=== PATIENT | male | born 1995 | race Caucasian/White ===

== ENCOUNTER 2018-02-04 06:33 | Emergency (ER) | payer MEDICAID, OTHER ==
[~2018-02-04] VITALS: Ht 182.9 cm; Wt 75.0 kg
[~2018-02-04 06:33] MED LIST: DIVA500T9 PO; DOXYCYCLINE PO; LEVE10002 PO
[2018-02-04 06:34] VITALS: BP 119/82
[2018-02-04] MEDS ORDERED: FLUC200T8 PO (07:36)
== END 2018-02-04 07:58 | disposition home or self-care (01) ==
LOC: ER 06:33
DX: B35.6 Tinea cruris (principal); Z79.899 Other long term (current) drug therapy
CPT/HCPCS: 99283

== ENCOUNTER 2018-03-02 03:07 | Emergency (ER) | payer OTHER ==
[~2018-03-02] VITALS: Ht 182.9 cm; Wt 76.0 kg
[2018-03-02 03:12] VITALS: BP 145/107
== END 2018-03-02 03:26 | disposition home or self-care (01) ==
LOC: ER 03:07
DX: B35.6 Tinea cruris (principal); Z79.899 Other long term (current) drug therapy
CPT/HCPCS: 99283

== ENCOUNTER 2018-10-30 13:25 | Emergency (ER) | payer MEDICAID, OTHER ==
[~2018-10-30] VITALS: Ht 182.9 cm; Wt 75.0 kg
[2018-10-30 14:14] VITALS: BP 99/75
--- NOTE | 2018-10-30 14:28 | NUR ---
pt states, "i have a severe fungal infection.. and also have chylmadia. ua collected
[2018-10-30] MEDS ORDERED: azithromycin 250mg tablet PO ONE (15:25)
[2018-10-30] MEDS ORDERED: CefTRIAXone 1000mg IM Kit (w/lidocaine diluent) IM ONE (15:25)
[2018-10-30] MEDS ORDERED: MYCOL30CR TP (15:37)
== END 2018-10-30 15:52 | disposition home or self-care (01) ==
LOC: ER 13:26
DX: B35.6 Tinea cruris (principal)
CPT/HCPCS: 36415; 87491; 87591; 96372; 99283; J0696

== ENCOUNTER 2018-11-28 15:09 | Emergency (ER) | payer MEDICAID, OTHER ==
[~2018-11-28] VITALS: Ht 182.9 cm; Wt 72.7 kg
[~2018-11-28 15:09] MED LIST changes: +MYCOL30CR TP
[2018-11-28 15:19] VITALS: BP 130/68
--- NOTE | 2018-11-28 15:28 | NUR ---
PT SEEN IN TRIAGE BY PAM CRENSHAW
== END 2018-11-28 15:51 | disposition home or self-care (01) ==
LOC: ER 15:09
DX: G40.909 Epilepsy, unspecified, not intractable, without status epilepticus (principal); F12.90 Cannabis use, unspecified, uncomplicated; Z79.899 Other long term (current) drug therapy
CPT/HCPCS: 99284

== ENCOUNTER 2019-03-25 01:34 | Emergency (ER) | payer MEDICAID ==
[~2019-03-25] VITALS: Ht 182.9 cm; Wt 65.0 kg
[2019-03-25] MEDS ORDERED: ondansetron/PF 4mg/2ml inj IV STA (01:52)
[2019-03-25] MEDS ORDERED: normal saline 1000ml 1,000 ML IVB ONE (01:52)
[2019-03-25 02:17] LABS: BASOPHILS # (AUTO) 0.1 X10'3 (0-0.2); BASOPHILS % (AUTO) 0.6 % (0-1); EOSINOPHILS % (AUTO) 0.2 % (0-6); HEMOGLOBIN 16.7 g/dl (14.0-17.9); LYMPHOCYTES # (AUTO) 2.2 X10'3 (1.1-4.8); LYMPHOCYTES % (AUTO) 19.9 % (21-51); MEAN CORPUSCULAR HEMOGLOBIN 30.6 PG (27.0-31.0); MEAN CORPUSCULAR HGB CONC 35.4 g/dL (33.0-36.5); MEAN CORPUSCULAR VOLUME 86.4 FL (78-98); MONOCYTES # (AUTO) 1.3 X10'3 (0-0.9); MONOCYTES % (AUTO) 12.1 % (2-12); NEUTROPHILS # (AUTO) 7.4 X10'3 (1.8-7.7); NEUTROPHILS % (AUTO) 67.2 % (42-75); PLATELET COUNT 298 X10'3 (140-440); RED BLOOD COUNT 5.44 X10'6 (4.70-6.10); RED CELL DISTRIBUTION WIDTH 13.4 % (11.5-14.5)
[2019-03-25 02:26] LABS: ALANINE AMINOTRANSFERASE 26 U/L (12-78); ALBUMIN 5.1 G/DL (3.4-5.0); ALBUMIN/GLOBULIN RATIO 1.4 (1.1-1.5); ALKALINE PHOSPHATASE 92 IU/L (46-116); AMYLASE 35 U/L (25-115); ANION GAP 10 (8-16); ASPARTATE AMINO TRANSFERASE 20 U/L (10-37); BILIRUBIN,TOTAL 1.4 MG/DL (0.1-1.0); BLOOD UREA NITROGEN 13 MG/DL (7-18); BUN/CREATININE RATIO 10.5 (5.4-32.0); CALCIUM 9.7 MG/DL (8.5-10.1); CHLORIDE 94 MMOL/L (99-107); CREATININE 1.24 MG/DL (0.60-1.10); GLUCOSE 110 MG/DL (70-104); LIPASE 79 U/L (73-393); POTASSIUM 3.4 MMOL/L (3.5-5.1); SODIUM 134 MMOL/L (135-145); TOTAL CARBON DIOXIDE 30.3 MMOL/L (24-32); TOTAL PROTEIN 8.7 G/DL (6.4-8.2); eGFR 71 ML/MIN
[2019-03-25] MEDS ORDERED: haloperidol lactate 5mg/ml inj IM ONE (02:45)
[2019-03-25] MEDS ORDERED: normal saline 1000ML IV soln IVB ONE (02:45)
[2019-03-25] MEDS ORDERED: diphenhydrAMINE 50 mg/ml inj IV ONE (02:45)
[2019-03-25 02:58] LABS: CLARITY,URINE CLEAR (Clear); COLOR,URINE YELLOW (Yellow); GLUCOSE, URINE NEGATIVE (Neg); KETONES,URINE 15 mg/dl (Neg); LEUKOCYTE ESTERASE ,URINE NEGATIVE (Neg); NITRITES, URINE NEGATIVE (Neg); OCCULT BLOOD,URINE TRACE-INTACT (Neg); PH,URINE 6.5 (4.8-8.0); PROTEIN,URINE 100 mg/dl (Neg); UROBILINOGEN,URINE 0.2 E.U/dL (0.2-1.0)
[2019-03-25 03:04] LABS: UA COLLECTION TYPE CLN CATCH MIDSTREAM
[2019-03-25 03:06] LABS: MUCUS STRANDS MODERATE /LPF (Neg); SQUAMOUS EPITHELIAL CELL,UR FEW /LPF (FEW)
[2019-03-25 03:07] LABS: BACTERIA,URINE 2+ /HPF (Neg); RBC,URINE 0-2 /HPF (0-2)
[2019-03-25] MEDS ORDERED: azithromycin 250mg tablet PO ONE (03:25)
[2019-03-25] MEDS ORDERED: CefTRIAXone 2gm/D5W 50ml 50 ML IV ONE (03:25)
[2019-03-25] MEDS ORDERED: ONDA4TAB12 PO (04:22)
[2019-03-25 04:26] VITALS: BP 136/79
== END 2019-03-25 04:37 | disposition home or self-care (01) ==
LOC: ER 01:35
DX: N34.2 Other urethritis (principal); R11.2 Nausea with vomiting, unspecified; E86.0 Dehydration; R10.13 Epigastric pain; F17.210 Nicotine dependence, cigarettes, uncomplicated; F12.90 Cannabis use, unspecified, uncomplicated; Z79.899 Other long term (current) drug therapy
CPT/HCPCS: 36415; 80053; 81001; 82150; 83690; 85025; 85610; 87088; 96361; 96365; 96372; 96375; 99283; J0696; J1200; J1630; J2405; J7030

== ENCOUNTER 2019-11-07 12:21 | Emergency (ER) | payer MEDICAID, OTHER ==
[~2019-11-07] VITALS: Ht 180.3 cm; Wt 70.0 kg
[~2019-11-07 12:21] MED LIST changes: +ONDA4TAB12 PO
[2019-11-07 12:30] VITALS: BP 127/87
--- NOTE | 2019-11-07 13:33 | NUR ---
lico bernabe engaged in i&d procedure. pt tolerating well.
[2019-11-07] MEDS ORDERED: CEPH500C5 PO (13:40)
[2019-11-07] MEDS ORDERED: SULF1TAB49 PO (13:40)
== END 2019-11-07 13:48 | disposition home or self-care (01) ==
LOC: ER 12:22
DX: L02.31 Cutaneous abscess of buttock (principal); F12.90 Cannabis use, unspecified, uncomplicated
CPT/HCPCS: 10060; 99283

== ENCOUNTER 2020-02-11 01:45 | Emergency (ER) | payer MEDICAID, OTHER ==
[~2020-02-11] VITALS: Ht 180.3 cm; Wt 72.7 kg
--- NOTE | 2020-02-11 02:15 | NUR ---
PATIENT VERBALIZED THEY HAD SMOKED MARIJUANA PRIOR TO BEING TRIAGED TO THE AIRCRAFT MAINTENANCE DIRECTOR
--- NOTE | 2020-02-11 02:21 | NUR ---
DR. ARMSTRONG AT BEDSIDE ASSESSING PATIENT
[2020-02-11 02:50] VITALS: BP 131/93
[2020-02-11 02:56] LABS: BASOPHILS # (AUTO) 0.1 X10'3 (0-0.2); BASOPHILS % (AUTO) 0.7 % (0-1); EOSINOPHILS # (AUTO) 0.1 X10'3 (0-0.9); EOSINOPHILS % (AUTO) 0.8 % (0-6); HEMATOCRIT 42.7 % (42.0-52.0); HEMOGLOBIN 14.5 g/dl (14.0-17.9); LYMPHOCYTES # (AUTO) 2.2 X10'3 (1.1-4.8); LYMPHOCYTES % (AUTO) 28.1 % (21-51); MEAN CORPUSCULAR HGB CONC 33.8 g/dL (33.0-36.5); MEAN CORPUSCULAR VOLUME 88.5 FL (78-98); MEAN PLATELET VOLUME 8.7 FL (7.4-10.4); MONOCYTES # (AUTO) 0.9 X10'3 (0-0.9); NEUTROPHILS # (AUTO) 4.6 X10'3 (1.8-7.7); NEUTROPHILS % (AUTO) 58.4 % (42-75); PLATELET COUNT 224 X10'3 (140-440); RED BLOOD COUNT 4.83 X10'6 (4.70-6.10); RED CELL DISTRIBUTION WIDTH 13.7 % (11.5-14.5); WHITE BLOOD COUNT 7.8 X10'3 (4.5-11.0)
[2020-02-11 03:02] LABS: URINE AMPHETAMINE SCREEN NEGATIVE (Neg); URINE BARBITUATE SCREEN NEGATIVE (Neg); URINE BENZODIAZEPINES SCREEN NEGATIVE (Neg); URINE CANNABINOID SCREEN POSITIVE (Neg); URINE COCAINE SCREEN NEGATIVE (Neg); URINE METHADONE SCREEN NEGATIVE (Neg); URINE OPIATE SCREEN NEGATIVE (Neg); URINE PHENCYCLIDINE SCREEN NEGATIVE (Neg)
[2020-02-11 03:03] LABS: ALANINE AMINOTRANSFERASE 18 U/L (12-78); ALBUMIN 4.4 G/DL (3.4-5.0); ALBUMIN/GLOBULIN RATIO 1.5 (1.1-1.5); ALKALINE PHOSPHATASE 90 IU/L (46-116); ANION GAP 6 (8-16); ASPARTATE AMINO TRANSFERASE 21 U/L (10-37); BILIRUBIN,TOTAL 0.7 MG/DL (0.1-1.0); BLOOD UREA NITROGEN 12 MG/DL (7-18); BUN/CREATININE RATIO 12.8 (5.4-32.0); CALCIUM 9.2 MG/DL (8.5-10.1); CHLORIDE 104 MMOL/L (99-107); CREATININE 0.94 MG/DL (0.60-1.10); GLUCOSE 104 MG/DL (70-104); POTASSIUM 3.5 MMOL/L (3.5-5.1); SODIUM 139 MMOL/L (135-145); TOTAL CARBON DIOXIDE 29.4 MMOL/L (24-32); TOTAL PROTEIN 7.4 G/DL (6.4-8.2); eGFR > 90 ML/MIN
[2020-02-11 03:11] LABS: ETHANOL < 0.010 GM/DL (0.0-0.010)
[2020-02-11] MEDS ORDERED: KEP500T PO (03:23)
[2020-02-12] MEDS ORDERED: LEVE10002 PO (15:54)
== END 2020-02-11 03:35 | disposition home or self-care (01) ==
LOC: ER 01:45
DX: G40.909 Epilepsy, unspecified, not intractable, without status epilepticus (principal); F41.9 Anxiety disorder, unspecified; F32.9 Major depressive disorder, single episode, unspecified; F17.200 Nicotine dependence, unspecified, uncomplicated; F12.90 Cannabis use, unspecified, uncomplicated; Z72.89 Other problems related to lifestyle; Z79.899 Other long term (current) drug therapy
CPT/HCPCS: 36415; 80053; 80305; 80320; 84443; 85025; 99283

== ENCOUNTER 2020-02-12 13:28 | Emergency (ER) | payer MEDICAID, OTHER ==
[~2020-02-12] VITALS: Ht 180.3 cm; Wt 80.0 kg
[~2020-02-12 13:28] MED LIST changes: +KEP500T PO
[2020-02-12] MEDS ORDERED: LORazepam 1 MG tablet PO ONE (15:20)
[2020-02-12] MEDS ORDERED: LEVE10002 PO (15:54)
[2020-02-12] MEDS ORDERED: levetiracetam 250mg tablet PO ONE (15:55)
[2020-02-12 16:09] VITALS: BP 139/84
== END 2020-02-12 16:11 | disposition home or self-care (01) ==
LOC: ER 13:29
DX: G40.909 Epilepsy, unspecified, not intractable, without status epilepticus (principal); F41.9 Anxiety disorder, unspecified; F32.9 Major depressive disorder, single episode, unspecified; F12.90 Cannabis use, unspecified, uncomplicated; Z79.899 Other long term (current) drug therapy
CPT/HCPCS: 99283

== ENCOUNTER 2021-05-26 06:51 | Emergency (ER) | payer MEDICAID, OTHER ==
[~2021-05-26] VITALS: Ht 177.8 cm; Wt 59.1 kg
--- NOTE | 2021-05-26 09:21 | NUR ---
seizure pads x2.Call light within reach.
[2021-05-26] MEDS ORDERED: AMOX-580 PO (09:43)
[2021-05-26] MEDS ORDERED: HYDR-3972 PO (09:43)
[2021-05-26 10:01] VITALS: BP 136/86
== END 2021-05-26 10:02 | disposition home or self-care (01) ==
LOC: ER 06:51
DX: K04.7 Periapical abscess without sinus (principal); K05.30 Chronic periodontitis, unspecified; R68.84 Jaw pain; F41.9 Anxiety disorder, unspecified; F32.9 Major depressive disorder, single episode, unspecified; F12.90 Cannabis use, unspecified, uncomplicated; Z86.69 Personal history of other diseases of the nervous system and sense organs; Z72.89 Other problems related to lifestyle; Z79.899 Other long term (current) drug therapy
CPT/HCPCS: 99283

== ENCOUNTER 2022-01-27 09:14 | Emergency (ER) | payer MEDICAID ==
[~2022-01-27] VITALS: Ht 177.8 cm; Wt 72.7 kg
[2022-01-27 09:20] VITALS: BP 127/76
[2022-01-27] MEDS ORDERED: ketorolac trometh inj. 60 MG/2 ML VIAL IM ONE (11:05)
[2022-01-27] MEDS ORDERED: ketorolac trometh. 30mg/ml inj. IM ONE (11:15)
== END 2022-01-27 11:51 | disposition home or self-care (01) ==
LOC: ER 09:15
DX: G89.29 Other chronic pain (principal); M25.512 Pain in left shoulder; F31.9 Bipolar disorder, unspecified; F12.10 Cannabis abuse, uncomplicated; Z79.899 Other long term (current) drug therapy
CPT/HCPCS: 73030; 96372; 99284; J1885; 99283

== ENCOUNTER 2022-06-17 18:50 | Emergency (ER) | payer MEDICAID ==
[~2022-06-17] VITALS: Ht 177.8 cm; Wt 72.7 kg
[~2022-06-17 18:50] MED LIST changes: -MYCOL30CR TP; +NYST30CR35 TP
[2022-06-17 19:26] LABS: BASOPHILS % (AUTO) 0.4 % (0-1); EOSINOPHILS # (AUTO) 0.1 X10'3 (0-0.9); EOSINOPHILS % (AUTO) 1.2 % (0-6); HEMATOCRIT 41.4 % (42.0-52.0); HEMOGLOBIN 13.9 g/dl (14.0-17.9); LYMPHOCYTES # (AUTO) 1.2 X10'3 (1.1-4.8); LYMPHOCYTES % (AUTO) 18.6 % (21-51); MEAN CORPUSCULAR HEMOGLOBIN 29.2 PG (27.0-31.0); MEAN CORPUSCULAR HGB CONC 33.5 g/dL (33.0-36.5); MEAN CORPUSCULAR VOLUME 87.1 FL (78-98); MEAN PLATELET VOLUME 7.7 FL (7.4-10.4); MONOCYTES # (AUTO) 0.8 X10'3 (0-0.9); MONOCYTES % (AUTO) 12.1 % (2-12); NEUTROPHILS # (AUTO) 4.4 X10'3 (1.8-7.7); NEUTROPHILS % (AUTO) 67.7 % (42-75); PLATELET COUNT 216 X10'3 (140-440); RED BLOOD COUNT 4.76 X10'6 (4.70-6.10); RED CELL DISTRIBUTION WIDTH 13.2 % (11.5-14.5); WHITE BLOOD COUNT 6.5 X10'3 (4.5-11.0)
[2022-06-17 19:35] LABS: ALANINE AMINOTRANSFERASE 15 U/L (12-78); ALBUMIN 4.1 G/DL (3.4-5.0); ALBUMIN/GLOBULIN RATIO 1.3 (1.1-1.5); ALKALINE PHOSPHATASE 94 IU/L (46-116); ANION GAP 9 (8-16); ASPARTATE AMINO TRANSFERASE 13 U/L (10-37); BILIRUBIN,TOTAL 0.3 MG/DL (0.1-1.0); BLOOD UREA NITROGEN 11 MG/DL (7-18); BUN/CREATININE RATIO 11.6 (5.4-32.0); CALCIUM 8.4 MG/DL (8.5-10.1); CHLORIDE 105 MMOL/L (99-107); CREATININE 0.95 MG/DL (0.60-1.10); GLUCOSE 100 MG/DL (70-104); POTASSIUM 3.5 MMOL/L (3.5-5.1); SODIUM 143 MMOL/L (135-145); TOTAL CARBON DIOXIDE 29.3 MMOL/L (24-32); TOTAL PROTEIN 7.2 G/DL (6.4-8.2); eGFR > 90 ML/MIN
[2022-06-17 19:44] LABS: ETHANOL < 0.010 GM/DL (0.0-0.010)
--- NOTE | 2022-06-17 23:00 | NUR ---
PT SEEN STANDING IN DOORWAY, WHEN ASKED WHAT HE NEEDED HE BECAME VERBALLY AGGRESIVE WITH STAFF AND SECURITY WAS CALLED.
--- NOTE | 2022-06-17 23:27 | NUR ---
PT STATES NO CURRENT SI OR WISH TO HURT HIMSELF OR OTHERS. STATES THAT HE SHOULD NOT BE HELD AGAINST HIS WILL WHEN HE "DID NOTHING"
[2022-06-18] MEDS ORDERED: clotrimazole topical cream 15gm tube TP SCH (00:05)
[2022-06-18 00:27] LABS: URINE AMPHETAMINE SCREEN NEGATIVE (Neg); URINE BARBITUATE SCREEN NEGATIVE (Neg); URINE BENZODIAZEPINES SCREEN NEGATIVE (Neg); URINE CANNABINOID SCREEN POSITIVE (Neg); URINE COCAINE SCREEN NEGATIVE (Neg); URINE METHADONE SCREEN NEGATIVE (Neg); URINE OPIATE SCREEN NEGATIVE (Neg); URINE PHENCYCLIDINE SCREEN NEGATIVE (Neg)
--- NOTE | 2022-06-18 00:30 | NUR ---
PT REQUESTED LOTION FOR HIS "ITCHY AND DRY SKIN" ASKED IF PT HAD ECZEMA WHICH HE REPLIED NO JUST "SKIN ISSUES"
[2022-06-18] MEDS ORDERED: MYCOL15O TP (01:11)
[2022-06-18] MEDS ORDERED: CLOT15CR35 TOP (01:15)
--- NOTE | 2022-06-18 10:13 | NUR ---
MENTAL HEALTH AT BEDSIDE FOR EVAL
--- NOTE | 2022-06-18 10:45 | NUR ---
PER MENTAL HEALTH PATIENT TO TAKE TAXI HOME AT 1500 TO HAND BASEBALL SEWER BELOGNINGS AND FOLLOW SAFETY PLAN
[2022-06-18 11:42] VITALS: BP 121/76
== END 2022-06-18 11:43 | disposition home or self-care (01) ==
LOC: ER 18:51
DX: R45.851 Suicidal ideations (principal); Z20.822 Contact with and (suspected) exposure to COVID-19; F31.9 Bipolar disorder, unspecified; F12.10 Cannabis abuse, uncomplicated; F17.200 Nicotine dependence, unspecified, uncomplicated; Z79.899 Other long term (current) drug therapy
CPT/HCPCS: 36415; 80053; 80305; 80320; 84443; 85025; 87811; 99285

== ENCOUNTER 2024-01-27 16:58 | Emergency (ER) | payer MEDICAID ==
[~2024-01-27] VITALS: Ht 177.8 cm; Wt 75.0 kg
[~2024-01-27 16:58] MED LIST changes: +CLOT15CR35 TOP; -DIVA500T9 PO; -DOXYCYCLINE PO; -KEP500T PO; -LEVE10002 PO; +MYCOL15O TP; -NYST30CR35 TP; -ONDA4TAB12 PO
[2024-01-27 17:23] VITALS: BP 114/80; PULSE 137; RESP 16; TEMP 98.9; O2SAT 98
== END 2024-01-27 18:26 ==
LOC: ER 16:59
DX: S00.81XA Abrasion of other part of head, initial encounter (principal); F12.90 Cannabis use, unspecified, uncomplicated; Z79.899 Other long term (current) drug therapy; X58.XXXA Exposure to other specified factors, initial encounter; Y93.89 Activity, other specified; Y92.89 Other specified places as the place of occurrence of the external cause; Y99.8 Other external cause status
CPT/HCPCS: 99283

== ENCOUNTER 2024-09-04 13:04 | Emergency (ER) | payer MEDICAID ==
[~2024-09-04 13:04] MED LIST changes: -MYCOL15O TP; +NYST15OI TP
[2024-09-04 13:51] LABS: BASOPHILS % (AUTO) 0.1 % (0-1); EOSINOPHILS % (AUTO) 0 % (0-6); HEMATOCRIT 41.4 % (42.0-52.0); LYMPHOCYTES # (AUTO) 0.7 X10'3 (1.1-4.8); LYMPHOCYTES % (AUTO) 4.6 % (21-51); MEAN CORPUSCULAR HEMOGLOBIN 30.1 PG (27.0-31.0); MEAN CORPUSCULAR HGB CONC 33.8 g/dL (33.0-36.5); MEAN PLATELET VOLUME 7.8 FL (7.4-10.4); MONOCYTES # (AUTO) 1.6 X10'3 (0-0.9); MONOCYTES % (AUTO) 10.4 % (2-12); NEUTROPHILS # (AUTO) 12.8 X10'3 (1.8-7.7); NEUTROPHILS % (AUTO) 84.9 % (42-75); PLATELET COUNT 245 X10'3 (140-440); RED BLOOD COUNT 4.66 X10'6 (4.70-6.10); RED CELL DISTRIBUTION WIDTH 13.4 % (11.5-14.5); WHITE BLOOD COUNT 15.1 X10'3 (4.5-11.0)
[2024-09-04 14:12] LABS: ALBUMIN 4.7 G/DL (3.4-5.0); ANION GAP 15 (8-16); BLOOD UREA NITROGEN 14 MG/DL (7-18); CALCIUM 9.2 MG/DL (8.5-10.1); CHLORIDE 98 MMOL/L (99-107); CREATININE 1.08 MG/DL (0.60-1.10); GLUCOSE 78 MG/DL (70-104); POTASSIUM 3.7 MMOL/L (3.5-5.1); SODIUM 139 MMOL/L (135-145); THYROID STIMULATING HORMONE 1.33 ulU/ml (0.34-4.50); TOTAL CARBON DIOXIDE 25.7 MMOL/L (24-32); eGFR 80 ML/MIN
[2024-09-04 14:16] LABS: ETHANOL < 10 MG/DL (<10)
[2024-09-04] MEDS ORDERED: levetiracetam inj 1,500 MG in normal saline 100ml IV soln 100 ML IV ONE (17:05)
[2024-09-04] MEDS ORDERED: levetiracetamNACL 1500mg/100mL 100 ML IV ONE (17:06)
[2024-09-04 18:54] LABS: BILIRUBIN,URINE NEGATIVE (Neg); CLARITY,URINE CLEAR (Clear); COLOR,URINE YELLOW (Yellow); GLUCOSE, URINE NEGATIVE (Neg); KETONES,URINE >=80 mg/dl (Neg); LEUKOCYTE ESTERASE ,URINE NEGATIVE (Neg); NITRITES, URINE NEGATIVE (Neg); OCCULT BLOOD,URINE NEGATIVE (Neg); PROTEIN,URINE NEGATIVE (Neg); UROBILINOGEN,URINE 0.2 E.U/dL (0.2-1.0)
[2024-09-04 18:59] LABS: UA COLLECTION TYPE CLN CATCH MIDSTREAM
[2024-09-04 19:11] LABS: URINE AMPHETAMINE SCREEN NEGATIVE (Neg); URINE BARBITUATE SCREEN NEGATIVE (Neg); URINE BENZODIAZEPINES SCREEN NEGATIVE (Neg); URINE CANNABINOID SCREEN POSITIVE (Neg); URINE COCAINE SCREEN NEGATIVE (Neg); URINE METHADONE SCREEN NEGATIVE (Neg); URINE OPIATE SCREEN NEGATIVE (Neg); URINE PHENCYCLIDINE SCREEN NEGATIVE (Neg)
[2024-09-04] MEDS: levetiracetamNACL 1500mg/100mL 100 ML IV ONE (20:12)
[2024-09-04] MEDS: oxcarbazepine 150mg tablet PO ONE (20:12)
[2024-09-04] MEDS: LORazepam 2 mg/ml vial IM ONE (21:32)
[2024-09-04] MEDS: ziprasidone IM 20mg inj **IM only IM ONE (21:41)
[2024-09-04] MEDS ORDERED: OXCA300T16 PO (23:13)
[2024-09-05] MEDS: oxcarbazepine 150mg tablet PO SCH (09:08)
[2024-09-05] MEDS: haloperidol lactate 5mg/ml inj ONE (18:22)
[2024-09-05] MEDS: diphenhydrAMINE 50 mg/ml inj ONE (18:23)
[2024-09-05] MEDS: haloperidol lactate 5mg/ml inj IM ONE (18:23)
[2024-09-05] MEDS: LORazepam 2 mg/ml vial ONE (18:24)
[2024-09-07 05:45] VITALS: BP 110/70; PULSE 88; TEMP 97.1; O2SAT 100
[2024-09-07 07:23] VITALS: RESP 16
[2024-09-07] MEDS ORDERED: OXCA300T4 PO (14:29)
== END 2024-09-07 14:53 | disposition home or self-care (01) ==
LOC: ER 13:04
DX: F99 Mental disorder, not otherwise specified (principal); Z20.822 Contact with and (suspected) exposure to COVID-19; G40.909 Epilepsy, unspecified, not intractable, without status epilepticus; F41.9 Anxiety disorder, unspecified; F17.200 Nicotine dependence, unspecified, uncomplicated; F12.90 Cannabis use, unspecified, uncomplicated; Z79.899 Other long term (current) drug therapy
CPT/HCPCS: 36415; 70450; 80048; 80305; 80320; 81003; 83605; 84443; 85025; 87811; 96372; 96374; 99285; J1200; J1630; J1953; J2060; J3486; J7030

== ENCOUNTER 2024-09-08 17:19 | Emergency (ER) | payer MEDICAID ==
[~2024-09-08] VITALS: Ht 180.3 cm; Wt 73.0 kg
[~2024-09-08 17:19] MED LIST changes: -CLOT15CR35 TOP; -NYST15OI TP; +OXCA300T16 PO; +OXCA300T4 PO
[2024-09-08 18:26] VITALS: TEMP 98
[2024-09-08 18:57] LABS: BASOPHILS % (AUTO) 0.3 % (0-1); EOSINOPHILS % (AUTO) 0.4 % (0-6); HEMATOCRIT 41.4 % (42.0-52.0); HEMOGLOBIN 14.2 g/dl (14.0-17.9); LYMPHOCYTES % (AUTO) 9.4 % (21-51); MEAN CORPUSCULAR HEMOGLOBIN 30.1 PG (27.0-31.0); MEAN CORPUSCULAR HGB CONC 34.4 g/dL (33.0-36.5); MEAN CORPUSCULAR VOLUME 87.7 FL (78-98); MEAN PLATELET VOLUME 7.8 FL (7.4-10.4); MONOCYTES # (AUTO) 1.3 X10'3 (0-0.9); MONOCYTES % (AUTO) 12.1 % (2-12); NEUTROPHILS # (AUTO) 8.3 X10'3 (1.8-7.7); NEUTROPHILS % (AUTO) 77.8 % (42-75); PLATELET COUNT 228 X10'3 (140-440); RED BLOOD COUNT 4.72 X10'6 (4.70-6.10); RED CELL DISTRIBUTION WIDTH 13.3 % (11.5-14.5); WHITE BLOOD COUNT 10.7 X10'3 (4.5-11.0)
[2024-09-08 19:08] LABS: ALBUMIN 4.4 G/DL (3.4-5.0); ANION GAP 10 (8-16); BLOOD UREA NITROGEN 12 MG/DL (7-18); BUN/CREATININE RATIO 13.6 (10.0-20.0); CALCIUM 9.1 MG/DL (8.5-10.1); CHLORIDE 102 MMOL/L (99-107); CREATININE 0.88 MG/DL (0.60-1.10); GLUCOSE 112 MG/DL (70-104); POTASSIUM 3.3 MMOL/L (3.5-5.1); SODIUM 141 MMOL/L (135-145); TOTAL CARBON DIOXIDE 28.9 MMOL/L (24-32); eCRCL 127 ML/MIN; eGFR > 90 ML/MIN
[2024-09-08] MEDS: potassium Cl 20 mEq SR tablet PO STA (19:36)
[2024-09-08] MEDS: levetiracetam 250mg tablet PO ONE (19:37)
[2024-09-08 19:51] VITALS: BP 140/79; PULSE 77; RESP 16; O2SAT 98
[2024-09-08 19:54] LABS: BILIRUBIN,URINE NEGATIVE (Neg); CLARITY,URINE CLEAR (Clear); COLOR,URINE YELLOW (Yellow); GLUCOSE, URINE NEGATIVE (Neg); KETONES,URINE 40 mg/dl (Neg); LEUKOCYTE ESTERASE ,URINE NEGATIVE (Neg); NITRITES, URINE NEGATIVE (Neg); OCCULT BLOOD,URINE NEGATIVE (Neg); PROTEIN,URINE TRACE mg/dl (Neg); UROBILINOGEN,URINE 0.2 E.U/dL (0.2-1.0)
[2024-09-08 20:00] LABS: UA COLLECTION TYPE URINAL
[2024-09-08 20:03] LABS: BACTERIA,URINE FEW /HPF (Neg); MUCUS STRANDS MODERATE /LPF (Neg); RBC,URINE NONE SEEN /HPF (0-2); SQUAMOUS EPITHELIAL CELL,UR FEW /LPF (FEW); WBC,URINE 0-4 /HPF (0-4)
== END 2024-09-08 19:51 | disposition home or self-care (01) ==
LOC: ER 17:19
DX: G40.909 Epilepsy, unspecified, not intractable, without status epilepticus (principal); F12.90 Cannabis use, unspecified, uncomplicated; Z79.899 Other long term (current) drug therapy; W19.XXXA Unspecified fall, initial encounter; Y93.89 Activity, other specified; Y92.89 Other specified places as the place of occurrence of the external cause; Y99.8 Other external cause status
CPT/HCPCS: 36415; 71045; 80048; 81001; 82948; 85025; 99284

== ENCOUNTER 2024-09-17 01:28 | Emergency (ER) | payer MEDICAID ==
[~2024-09-17] VITALS: Ht 180.3 cm; Wt 75.0 kg
[2024-09-17] MEDS: ibuprofen tablet 400 MG TABLET PO ONE (02:22)
[2024-09-17] MEDS: ondansetron 4mg rapidly disintigrating tab PO ONE (02:22)
[2024-09-17] MEDS: acetaminophen 325mg tablet PO ONE (02:22)
[2024-09-17] MEDS ORDERED: CEPH-585 PO (03:39)
[2024-09-17] MEDS ORDERED: ONDA-245 PO (03:39)
[2024-09-17] MEDS ORDERED: IBUP-1984 PO (03:39)
[2024-09-17 03:53] VITALS: BP 123/73; PULSE 69; RESP 14; TEMP 98.1; O2SAT 98
== END 2024-09-17 03:56 | disposition home or self-care (01) ==
LOC: ER 01:28
DX: B34.9 Viral infection, unspecified (principal); Z20.822 Contact with and (suspected) exposure to COVID-19; Z79.899 Other long term (current) drug therapy
CPT/HCPCS: 36415; 87502; 87503; 87811; 99284

== ENCOUNTER 2025-02-19 18:56 | Emergency (ER) | payer MEDICAID ==
[~2025-02-19] VITALS: Ht 182.9 cm; Wt 56.9 kg
[~2025-02-19 18:56] MED LIST changes: +ONDA-245 PO
[2025-02-19 19:13] VITALS: BP 146/56; PULSE 109; RESP 17; TEMP 97.6; O2SAT 99
--- NOTE | 2025-02-19 19:39 | Physician Documentation ---
History of Present Illness ~ Chief Complaint: Allergic Reaction Stated Complaint: "LIVER DAMAGE POSSIBLY" Time Seen by MD: 19:24 Primary Medical Doctor: [facility] HPI This 29-year-old male presents to the ED stating he believes he has developed liver damage secondary to taking terbinafine for a a fungal skin infection. States he has been taking the terbinafine since November and believes he has developed a change in status. Denies any pain but indicates that he just does not" feel right Day of Onset: Feb 19, 2025 Medication Reconciliation Allergies: Coded Allergies: No Known Allergies (Unverified , 02/19/25) Scheduled Ondansetron 8mg ODT (Ondansetron Odt), 1 TAB PO Q6H Oxcarbazepine (Oxcarbazepine), 300 MG PO BID, (Reported) Oxcarbazepine (Trileptal), 1 TAB PO Q12H Past Medical History Past Medical History: Seizures, Chladmydia, Anxiety, Depression Past Surgical History: no surgical history Other Past Family History: family hx of epilepsy Alcohol Use: Sober Drug Use: marijuana Lives with: Family Lives In: Home Occupation: employed Review of Systems All Other Systems at this time: Reviewed and Negative ROS As stated above in the HPI, otherwise all systems are reviewed and negative. Physical Exam Vital Signs: Temperature: 97.6, Source: Temporal, Heart Rate: 109, Respiratory Rate: 17, BP: 146/56, Pulse Oximetry: 99, Weight: 56.900 Physical Exam General: Alert, no apparent distress. HEENT: PERRL, EOMI, no injection, moist mucous membranes. Abrasion on forehead Neck: Full range of motion. Respiratory: Lungs clear, no respiratory distress. Cardiovascular: Regular rate and rhythm, no murmurs. Extremity: left elbow abrasion Neurologic: Oriented x4. Psychiatric: Odd affect but answering questions appropriate Skin: Normal color, warm and dry. No edema, no ecchymosis. Progress Results/Orders Results/Orders Completed Orders - DAMON CORDOVA ANODE WORKER Cbc/Diff (02/19/25 19:33) Lipase (02/19/25 19:33) Urinalysis, Cult If Indicated (02/19/25 19:33) CMP (02/19/25 19:33) Vital Signs 02/19/25 19:13 Temp 97.6 Pulse 109 Resp 17 B/P (MAP) 146/56 Pulse Ox 99 Laboratory Tests Test 02/19/25 19:38 02/19/25 19:56 Urine Specimen Description Cln catch midstream Urine Color Yellow Urine Clarity Clear Urine pH 6.0 Urine Specific Warren 1.025 Urine Protein Negative Urine Glucose (UA) Negative Urine Ketones >=80 Urine Occult Blood Negative Urine Nitrite Negative Urine Bilirubin Moderate Urine Urobilinogen 0.2 Urine Leukocyte Esterase Negative Urine Culture Indicated Not ind Volume Urine Centrifuged 10 ml Urine Comment White Blood Count 10.9 Red Blood Count 5.21 Hemoglobin 15.5 Hematocrit 45.0 Mean Corpuscular Volume 86.3 Mean Corpuscular Hemoglobin 29.7 Mean Corpuscular Hemoglobin Concent 34.4 Red Cell Distribution Width 13.8 Platelet Count 293 Mean Platelet Volume 7.6 Neutrophils (%) (Auto) 81.9 H Lymphocytes (%) (Auto) 9.1 L Monocytes (%) (Auto) 8.8 Eosinophils (%) (Auto) 0 Basophils (%) (Auto) 0.2 Neutrophils # (Auto) 8.9 H Lymphocytes # (Auto) 1.0 L Monocytes # (Auto) 1.0 H Eosinophils # (Auto) 0.0 Basophils # (Auto) 0.0 CBC Comment Sodium Level 135 Potassium Level 4.2 Chloride Level 97 L Carbon Dioxide Level 25.8 Anion Gap 12 Blood Urea Nitrogen 13 Creatinine 1.03 Estimated GFR/1.73 m2 84 BUN/Creatinine Ratio 12.6 Glucose Level 107 H Calcium Level 9.1 Total Bilirubin 0.8 Aspartate Amino Transf (AST/SGOT) 21 Alanine Aminotransferase (ALT/SGPT) 15 Alkaline Phosphatase 109 Total Protein 8.0 Albumin 4.9 Globulin 3.1 Albumin/Globulin Ratio 1.6 H Lipase 16 Chemistry Comments Medical Decision Making Findings I discussed with the patient his laboratory values. The indicated to him that he does not have any elevation in his liver enzymes. Overall his labs were reassuring. Upon further evaluation he thinks that he may have had a seizure last night and that may have caused his abrasion on his head.. He has been taking his medication as prescribed. He verbally indicated that he was reassured. We will follow up with his primary care Differential Dx:Considerations: Include: Anaphylaxis, Angioedema, Bronchospasm, Contact dermatitis, Drug reaction, Hypotension, Latex allergy, Renal failure, Respiratory failure, Shock, Urticaria, Other Departure Disposition: HOME / SELF CARE / HOMELESS Impression: Primary Impression: Seizure disorder Condition: Stable Discharge Instructions: Seizure, Adult, [id number] Additional Instructions: Follow up with your primary care for further evaluation. May need to have your antiseizure medication adjusted. Glad we are able with the help you today he lab results were very reassuring Referrals: NO PRIMARY CARE PROVIDER (PCP) Signature Scribe Signature: t Attestation: The note accurately reflects work and decisions made by me.Damon De La Paz NP 02/19/25 19:39 DAMON CORDOVA NP Feb 19, 2025 19:39
[2025-02-19 19:49] LABS: BILIRUBIN,URINE MODERATE (Neg); CLARITY,URINE CLEAR (Clear); COLOR,URINE YELLOW (Yellow); GLUCOSE, URINE NEGATIVE (Neg); KETONES,URINE >=80 mg/dl (Neg); LEUKOCYTE ESTERASE ,URINE NEGATIVE (Neg); NITRITES, URINE NEGATIVE (Neg); OCCULT BLOOD,URINE NEGATIVE (Neg); PROTEIN,URINE NEGATIVE (Neg); UROBILINOGEN,URINE 0.2 E.U/dL (0.2-1.0)
[2025-02-19 19:50] LABS: UA COLLECTION TYPE CLN CATCH MIDSTREAM
[2025-02-19 20:17] LABS: ALANINE AMINOTRANSFERASE 15 U/L (12-78); ALBUMIN 4.9 G/DL (3.4-5.0); ALBUMIN/GLOBULIN RATIO 1.6 (1.1-1.5); ANION GAP 12 (8-16); ASPARTATE AMINO TRANSFERASE 21 U/L (10-37); BASOPHILS % (AUTO) 0.2 % (0-1); BILIRUBIN,TOTAL 0.8 MG/DL (0.1-1.0); BLOOD UREA NITROGEN 13 MG/DL (7-18); BUN/CREATININE RATIO 12.6 (10.0-20.0); CALCIUM 9.1 MG/DL (8.5-10.1); CHLORIDE 97 MMOL/L (99-107); CREATININE 1.03 MG/DL (0.60-1.10); EOSINOPHILS % (AUTO) 0 % (0-6); GLUCOSE 107 MG/DL (70-104); HEMOGLOBIN 15.5 g/dl (14.0-17.9); LYMPHOCYTES % (AUTO) 9.1 % (21-51); MEAN CORPUSCULAR HEMOGLOBIN 29.7 PG (27.0-31.0); MEAN CORPUSCULAR HGB CONC 34.4 g/dL (33.0-36.5); MEAN CORPUSCULAR VOLUME 86.3 FL (78-98); MEAN PLATELET VOLUME 7.6 FL (7.4-10.4); MONOCYTES % (AUTO) 8.8 % (2-12); NEUTROPHILS # (AUTO) 8.9 X10'3 (1.8-7.7); NEUTROPHILS % (AUTO) 81.9 % (42-75); PLATELET COUNT 293 X10'3 (140-440); POTASSIUM 4.2 MMOL/L (3.5-5.1); RED BLOOD COUNT 5.21 X10'6 (4.70-6.10); RED CELL DISTRIBUTION WIDTH 13.8 % (11.5-14.5); SODIUM 135 MMOL/L (135-145); TOTAL CARBON DIOXIDE 25.8 MMOL/L (24-32); WHITE BLOOD COUNT 10.9 X10'3 (4.5-11.0); eCRCL 84 ML/MIN; eGFR 84 ML/MIN
[2025-02-19 20:18] LABS: ALKALINE PHOSPHATASE 109 IU/L (46-116); LIPASE 16 U/L (16-77)
== END 2025-02-19 20:48 | disposition home or self-care (01) ==
LOC: ER 18:57
DX: G40.909 Epilepsy, unspecified, not intractable, without status epilepticus (principal); S50.312A Abrasion of left elbow, initial encounter; S00.81XA Abrasion of other part of head, initial encounter; F41.9 Anxiety disorder, unspecified; F32.A Depression, unspecified; F12.90 Cannabis use, unspecified, uncomplicated; Z79.899 Other long term (current) drug therapy; X58.XXXA Exposure to other specified factors, initial encounter; Y93.89 Activity, other specified; Y92.89 Other specified places as the place of occurrence of the external cause; Y99.8 Other external cause status
CPT/HCPCS: 36415; 80053; 81003; 83690; 85025; 99283

== ENCOUNTER 2025-04-10 15:42 | Emergency (ER) | payer MEDICAID ==
[~2025-04-10] VITALS: Ht 182.9 cm; Wt 74.7 kg
[2025-04-10 15:44] VITALS: TEMP 98.1
--- NOTE | 2025-04-10 16:54 | Physician Documentation ---
History of Present Illness General Chief Complaint: Seizure Stated Complaint: SEIZURE Time Seen by MD: 16:13 Primary Medical Doctor: [facility] History of Present Illness Initial Comments The patient is a 29-year-old male with a history of seizures going back about nine years. Over the ensuing nine years his seizures have gotten worse. He was initially started on levetiracetam but was unable to tolerate it due to side effects. Over the years he has been tried on various medications, none of which have been completely effective and his seizures have become more frequent. He has absence seizures approximately every 2-3 days. He has grand mal seizures less often. No structural brain lesions have been uncovered. This morning he [place] up [place] on the ground with forehead abrasions without any memory of how he got there. He currently takes Depakote. Medication Reconciliation Allergies: Coded Allergies: No Known Allergies (Unverified , 02/19/25) Scheduled Ondansetron 8mg ODT (Ondansetron Odt), 1 TAB PO Q6H Oxcarbazepine (Oxcarbazepine), 300 MG PO BID, (Reported) Oxcarbazepine (Trileptal), 1 TAB PO Q12H Past Medical History Past Medical History: Seizures, Chladmydia, Anxiety, Depression Past Surgical History: no surgical history Other Past Family History: family hx of epilepsy Smoking: Cigarettes Alcohol Use: Sober Drug Use: marijuana Lives with: Family Lives In: Home Occupation: employed Review of Systems ROS Constitutional: Denies chills, fatigue, fever, weight gain or weight loss. HEENT: Denies hearing loss, sinus pressure or visual changes. Respiratory: Denies cough, shortness of breath or wheezing. Cardiovascular: Denies chest pain, pain while walking (claudication), edema or palpitations. Gastrointestinal: Denies abdominal pain, blood in stool, constipation, diarrhea, heartburn, loss of appetite, nausea or vomiting. Genitourinary: Denies painful urination (dysuria), excessive amount of urine (polyuria) or urinary frequency. Metabolic/Endocrine: Denies cold intolerance, heat intolerance, excessive thirst (polydipsia) or excessive hunger (polyphagia). Neurological: Seizures. Psychiatric: Denies anxiety or depression. Integumentary: Denies breast discharge, breast lump, hives, mole change(s), rash or skin lesion. Musculoskeletal: Denies back pain, joint pain, joint swelling or neck pain. Hematologic: Denies easily bleeding, easily bruises, lymphedema or issues with blood clots. Immunologic: Denies food allergies or seasonal allergies. Physical Exam Physical Exam Vital Signs: Temperature: 98.1, Source: Oral, Heart Rate: 101, Respiratory Rate: 16, BP: 122/78, Pulse Oximetry: 99, Weight: 74.700 Oxygen Flow Rate: 0 Physical Exam Physical Exam Vitals and nursing note reviewed. Constitutional: General: Patient is awake, alert, oriented x 4 in no acute distress and well appearing. Speech is clear and lucid. Appearance: Normal appearance. Patient is not ill-appearing, toxic-appearing or diaphoretic. HENT: Head: Normocephalic, abrasions over forehead. Mouth/Throat: Mouth: Mucous membranes are moist. Pharynx: Oropharynx is clear. Eyes: General: No scleral icterus. Extraocular Movements: Extraocular movements intact. Pupils: Pupils are equal, round, and reactive to light. Cardiovascular: Rate and Rhythm: Normal rate and regular rhythm. Heart sounds: No murmur heard. Pulmonary: Effort: No respiratory distress. Breath sounds: No wheezing, rhonchi or rales. Abdominal: General: There is no distension. Palpations: There is no fluid wave, hepatomegaly or mass. Tenderness: There is no abdominal tenderness. There is no guarding. Musculoskeletal: General: No swelling or deformity. Skin: Coloration: Skin is not jaundiced. Findings: No erythema or rash. Neurological: Mental Status: Patient is alert. Progress Results/Orders Results/Orders Orders - FANTASMA ARIZA MD Ct Head (04/10/25 16:39) Completed Orders - FANTASMA ARIZA MD Ct Head (04/10/25 16:39) Vital Signs 04/10/25 04/10/25 15:44 17:18 Temp 98.1 Pulse 101 Resp 16 18 B/P (MAP) 122/78 Pulse Ox 99 O2 Flow Rate 0 Medical Decision Making Findings I have obtained a CT of the head, which is unremarkable. The patient is currently with his mother and they are working on getting a referral out of area. Departure Disposition: HOME / SELF CARE / HOMELESS Impression: Primary Impression: Seizure disorder Condition: Stable Referrals: NO PRIMARY CARE PROVIDER (PCP) Education Educated: Patient, Family Educated regarding: diagnosis, treatment, need for follow up Signature Scribe Signature: . Attestation: . FANTASMA ARIZA MD Apr 10, 2025 16:54
--- NOTE | 2025-04-10 17:15 | RADIOLOGY REPORT ---
CT CT HEAD INDICATION: Struck head during seizure EXAM DATE: 04/10/2025 04:53 PM COMPARISON: CT CT HEAD on DOS: 09/04/24 RADIATION DOSE: CTDIvol: 63 mGy, DLP: 1125 mGy*cm PROCEDURE: CT scans of the head were obtained from the vertex to the skull base. Sagittal and coronal reconstructions were provided. All CT scans at this medical facility are performed using dose modulation techniques as appropriate t o a performed exam including the following: Automated exposure control was utilized; adjustment of th e MA and/or KV according to patient size; and use of iterative reconstruction technique. FINDINGS: There is sulcal and ventricular prominence. The brainshows normal morphology and lawrence-whi te matter differentiation, without intracranial hemorrhage, extra-axial fluid collection, mass effect or acute large vessel infarct. The ventricles are normal in size. The basal cisterns are patent. The skull and visible facial bones are intact. The paranasal sinuses, mastoid air cells and middle ear c avities are well-aerated. The soft tissues of the scalp are unremarkable. IMPRESSION: No acute intracranial abnormality.
[2025-04-10] MEDS: TETanus/Pertussis (Acell)/Diphther VAC/PF (Tdap-Adult) 0.5ml syringe IMVAC ONE (17:56)
[2025-04-10 18:11] VITALS: BP 124/74; PULSE 74; RESP 13; O2SAT 100
== END 2025-04-10 18:15 | disposition home or self-care (01) ==
LOC: ER 15:43
DX: S00.81XA Abrasion of other part of head, initial encounter (principal); G40.909 Epilepsy, unspecified, not intractable, without status epilepticus; F41.9 Anxiety disorder, unspecified; F32.A Depression, unspecified; F12.90 Cannabis use, unspecified, uncomplicated; Z79.899 Other long term (current) drug therapy; X58.XXXA Exposure to other specified factors, initial encounter; Y93.89 Activity, other specified; Y92.89 Other specified places as the place of occurrence of the external cause; Y99.8 Other external cause status
CPT/HCPCS: 70450; 90471; 90715; 99285; J7030